=== PATIENT | female | born 1985 | race Caucasian/White ===

== ENCOUNTER 2021-05-26 18:58 | Emergency (ER) | payer SELFPAY ==
[~2021-05-26] VITALS: Ht 165.1 cm; Wt 106.6 kg
[2021-05-26 19:01] VITALS: BP 147/110
[2021-05-26 19:30] VITALS: BP 147/110
--- NOTE | 2021-05-26 19:30 | NUR ---
PATIENT [facility] POLICE DEPT. PATIENT EXAMINED BY DR. DRAPER. PATIENT MEDICALLY CLEARED AND RELEASED IN CUSTODY IN STABLE CONDITION. ORIGINAL PRE-BOOK FORM GIVEN TO OFFICER LETICIA [id number].
== END 2021-05-26 19:30 ==
LOC: MED 18:58
DX: J45.909 Unspecified asthma, uncomplicated (principal); F31.9 Bipolar disorder, unspecified; Z02.89 Encounter for other administrative examinations; Z88.1 Allergy status to other antibiotic agents
CPT/HCPCS: 99283